=== PATIENT | female | born 1970 | race Two or more races ===

== ENCOUNTER 2021-03-26 09:35 | Emergency (ER) | payer MEDICAID ==
[~2021-03-26] VITALS: Ht 162.6 cm; Wt 99.8 kg
[2021-03-26] MEDS ORDERED: KETOROLAC TROMETH 60MG/2ML VIAL IM ONE (10:15)
[2021-03-26] MEDS ORDERED: CYCL-837 PO (10:34)
[2021-03-26] MEDS ORDERED: IBUP800T27 PO (10:34)
[2021-03-26 11:01] VITALS: BP 160/56
== END 2021-03-26 11:47 | disposition home or self-care (01) ==
LOC: ER 09:35
DX: S39.012A Strain of muscle, fascia and tendon of lower back, initial encounter (principal); M47.896 Other spondylosis, lumbar region; R94.31 Abnormal electrocardiogram [ECG] [EKG]; X58.XXXA Exposure to other specified factors, initial encounter; Y93.89 Activity, other specified; Y92.89 Other specified places as the place of occurrence of the external cause; Y99.8 Other external cause status
CPT/HCPCS: 72100; 93005; 96372; 99283; J1885